=== PATIENT | female | born 1990 | race Caucasian/White ===

== ENCOUNTER 2016-10-07 12:44 | Emergency (ER) | payer MEDICAID ==
[2016-10-07] MEDS ORDERED: diphenhydrAMINE INJ 50 MG/ML VIAL IM STA (13:06)
[2016-10-07] MEDS ORDERED: FAMOTIDINE 20 MG/50 ML 50 ML IV ONE (13:06)
[2016-10-07] MEDS ORDERED: DEXAMETHASONE 10 MG/ML VIAL PO STA (13:06)
[2016-10-07] MEDS ORDERED: EPINEPHrine 1 MG/ML AMP IM STA (13:06)
[2016-10-07] MEDS ORDERED: FAMOTIDINE 20 MG/2 ML VIAL ONE (13:09)
[2016-10-07] MEDS ORDERED: diphenhydrAMINE INJ 50 MG/ML VIAL ONE (13:09)
[2016-10-07] MEDS ORDERED: EPINEPHrine 1 MG/ML AMP ONE (13:09)
[2016-10-07] MEDS ORDERED: DEXAMETHASONE 10 MG/ML VIAL ONE (13:09)
--- NOTE | 2016-10-07 13:41 | ED Physician Documentation ---
History of Present Illness - Stated complaint Stated Complaint: ALLERGIC REACTION - Chief complaint Chief Complaint: Allergic Rx - Additonal information Additional information: hx from pt 25 y/o f denies preg allergic rxn to hair product facial swelling, lip swelling, throat swelling, SOA no NVD no rash Review of Systems Constitutional: denies: Fever Throat: reports: Sore throat Respiratory: reports: Dyspnea GI: denies: Abdominal Pain, Nausea, Vomiting, Diarrhea : denies: Now EGA Skin: denies: Rash Endocrine: denies: Easy bruising / bleeding Immunocompromised: denies: Immunocompromised PD PAST MEDICAL HISTORY - Past Medical History Psych: Depression - Past Surgical History 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 - Present Medications Home Medications: Ambulatory Orders Medication Instructions Recorded Confirmed FLUoxetine [PROzac] 60 mg ORAL DAILY 06/09/15 10/07/16 Cetirizine [ZyrTEC] 10 mg PO DAILY #5 tablet 10/07/16 Epinephrine [Epipen 2-Ezra] 0.3 mg IJ ONCE PRN #1 unit 10/07/16 predniSONE [Deltasone] 60 mg PO DAILY 3 Days 10/07/16 - Allergies Allergies/Adverse Reactions: Allergies Allergy/AdvReac Type Severity Reaction Status Date / Time No Known Drug Allergies Allergy Verified 10/07/16 12:50 - Social History Does the pt smoke?: Yes Smoking Status: Current every day smoker Does the pt drink ETOH?: Yes ETOH Use: Beer Does the pt have substance abuse?: No - Immunizations Immunizations are current?: Yes - POLST Patient has POLST: No PD ED PE NORMAL - Vitals Vital signs reviewed: Yes - HEENT HEENT: PERRL, Moist mucous membranes, Other (face red swollen lips swollen, mild tongue swelling, able to see soft palate and top of uvula) - Cardiac Cardiac: RRR - Respiratory Respiratory: No respiratory distress, Clear bilaterally - Abdomen Abdomen: Non tender - Derm Derm: No: Normal color (facial erythema) Results - Vitals Vitals: Vital Signs - 24 hr 10/07/16 10/07/16 10/07/16 12:47 12:56 13:45 Temperature 37.1 C Heart Rate 71 81 83 Respiratory 16 17 18 Rate Blood Pressure 129/79 126/71 112/48 L O2 Saturation 97 97 98 10/07/16 10/07/16 13:55 15:05 Temperature Heart Rate 82 93 Respiratory 18 18 Rate Blood Pressure 126/53 L 129/68 O2 Saturation 99 95 Oxygen O2 Source Room air - EKG (time done) 1302 Rate: Rate (enter#) (67) Rhythm: NSR Intervals: Normal [place] (borderline short) Ischemia: Normal ST segments PD MEDICAL DECISION MAKING - ED course ED course: epi IM benadryl pepcid decadron IV will obs 4 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 - erythema and swelling gone no rebound will dc Departure - Departure Disposition: 01 Home, Self Care Clinical Impression: Anaphylaxis Qualifiers: Encounter type: initial encounter Qualified Code(s): T78.2XXA - Anaphylactic shock, unspecified, initial encounter Condition: Good Instructions: ED Anaphylaxis General Follow-Up: Tito Piedra MD [Primary Care Provider] - Prescriptions: predniSONE [Deltasone] 60 mg PO DAILY 3 Days Epinephrine [Epipen 2-Ezra] 0.3 mg IJ ONCE PRN #1 unit PRN Reason: Anaphylaxis Cetirizine [ZyrTEC] 10 mg PO DAILY #5 tablet Comments: Consider seeing an rehab aide to be tested to see what you were allergic to so yo do not inadvertently get exposed again
[2016-10-07 17:48] VITALS: BP 112/74
--- NOTE | 2016-10-12 09:34 | ED Physician Documentation ---
ED Addendum - Addendum Addendum: 10/12/16 09:33 Patient still with some general aches, mild sore throat and feeling of trouble breathing. She is here with partner who hurt his shoulder and talks to me about her symptoms. Lungs are clear and throat has minimal edema of the uvula. Normal voice. She did not take the steroids Rx prior visit due to concern of side effects. Will have her take them now.
== END 2016-10-07 17:49 | disposition home or self-care (01) ==
LOC: ED 12:44
DX: T88.6XXA Anaphylactic reaction due to adverse effect of correct drug or medicament properly administered, initial encounter (principal); T49.4X5A Adverse effect of keratolytics, keratoplastics, and other hair treatment drugs and preparations, initial encounter; F17.200 Nicotine dependence, unspecified, uncomplicated
CPT/HCPCS: 93005; 93010; 96372; 96374; 99283; 99284

== ENCOUNTER 2016-10-10 12:19 | Emergency (ER) | payer MEDICAID ==
[2016-10-10] MEDS ORDERED: SODIUM CHLORIDE 0.9% 1,000 ML IV ONE (12:43)
[2016-10-10] MEDS ORDERED: KETOROLAC 60 MG/2 ML VIAL IVP STA (12:43)
--- NOTE | 2016-10-10 12:48 | ED Physician Documentation ---
History of Present Illness - Stated complaint Stated Complaint: DIZZY - Chief complaint Chief Complaint: General - History obtained from History obtained from: Patient, Family () - Additonal information Additional information: She was seen here a few nights ago for an allergic reaction related to hair dye , that is all better. She is not taking steroid and was taking Zyrtec through yesterday but was making her feel hyper and was unable to sleep at all basically. Today she went to work on the way to work was having trouble concentrating and feeling generally dizzy at work. She is mild bitemporal headache now associated with nausea but no vomiting. She had a hot flash yesterday but no measured fevers. She had chest pain yesterday which is now gone. No pedal edema or calf pain. Review of Systems Ten Systems: 10 systems reviewed and negative Constitutional: denies: Fever, Chills Eyes: reports: Photophobia. 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 - Present Medications Home Medications: Ambulatory Orders Medication Instructions Recorded Confirmed FLUoxetine [PROzac] 60 mg ORAL DAILY 06/09/15 10/07/16 Cetirizine [ZyrTEC] 10 mg PO DAILY #5 tablet 10/07/16 Epinephrine [Epipen 2-Ezra] 0.3 mg IJ ONCE PRN #1 unit 10/07/16 predniSONE [Deltasone] 60 mg PO DAILY 3 Days 10/07/16 - Allergies Allergies/Adverse Reactions: Allergies Allergy/AdvReac Type Severity Reaction Status Date / Time No Known Drug Allergies Allergy Verified 10/07/16 12:50 - Social History Does the pt smoke?: Yes Smoking Status: Current every day smoker Does the pt drink ETOH?: Yes Does the pt have substance abuse?: No - Family History Family history: reports: Non contributory - Immunizations Immunizations are current?: Yes - POLST Patient has POLST: No PD ED PE NORMAL - Vitals Vital signs reviewed: Yes - General General: Alert and oriented X 3, No acute distress - HEENT HEENT: PERRL, EOMI - Neck Neck: Supple, no meningeal sign, No bony TTP - Cardiac Cardiac: RRR, No murmur - Respiratory Respiratory: No respiratory distress, Clear bilaterally - Abdomen Abdomen: Soft, Non tender - Back Back: No CVA TTP, No spinal TTP - Derm Derm: Normal color, Warm and dry - Extremities Extremities: No deformity, No tenderness to palpate, No edema, No calf tenderness / cord - Neuro Neuro: Alert and oriented X 3, 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0 Hct 41.3 MCV 88.4 MCH 30.0 MCHC 33.9 RDW 12.6 Plt Count 222 MPV 8.0 Neut # 6.4 Lymph # 2.7 [place] # 0.8 Eos # 0.2 Baso # 0.0 Absolute Nucleated RBC 0.01 Nucleated RBCs 0.1 Sodium Potassium Chloride Carbon Dioxide Anion Gap BUN Creatinine Estimated GFR (MDRD) Glucose Calcium Total Bilirubin AST ALT Alkaline Phosphatase Total Protein Albumin Globulin Albumin/Globulin Ratio Lipase Urine Color YELLOW Urine Clarity CLEAR Urine pH 6.0 Ur Specific [place] <=1.005 Urine Protein NEGATIVE Urine Glucose (UA) NEGATIVE Urine Ketones NEGATIVE Urine Occult Blood NEGATIVE Urine Nitrite NEGATIVE Urine Bilirubin NEGATIVE Urine Urobilinogen 0.2 (NORMAL) Ur Leukocyte Esterase TRACE H Ur Microscopic Review INDICATED Urine Culture Comments Not Reportable Urine HCG, Qual NEGATIVE Urine Opiates Screen NEGATIVE Ur Oxycodone Screen NEGATIVE Urine Methadone Screen NEGATIVE Ur Propoxyphene Screen NEGATIVE Ur Barbiturates Screen NEGATIVE Ur Tricyclics Screen NEGATIVE Ur Phencyclidine Scrn NEGATIVE Ur Amphetamine Screen NEGATIVE U Methamphetamines Scrn NEGATIVE U Benzodiazepines Scrn NEGATIVE Urine Cocaine Screen NEGATIVE U Cannabinoids Screen NEGATIVE Ethyl Alcohol 10/10/16 13:11 WBC RBC Hgb Hct MCV MCH MCHC RDW Plt Count MPV Neut # Lymph # [place] # Eos # Baso # Absolute Nucleated RBC Nucleated RBCs Sodium 140 Potassium 3.7 Chloride 106 Carbon Dioxide 25 Anion Gap 9.0 BUN 12 Creatinine 0.8 Estimated GFR (MDRD) 87 L Glucose 89 Calcium 9.3 Total Bilirubin 0.9 AST 15 ALT 19 Alkaline Phosphatase 57 Total Protein 6.7 Albumin 4.2 Globulin 2.5 Albumin/Globulin Ratio 1.7 Lipase 19 L Urine Color Urine Clarity Urine pH Ur Specific [place] Urine Protein Urine Glucose (UA) Urine Ketones Urine Occult Blood Urine Nitrite Urine Bilirubin Urine Urobilinogen Ur Leukocyte Esterase Ur Microscopic Review Urine Culture Comments Urine HCG, Qual Urine Opiates Screen Ur Oxycodone Screen Urine Methadone Screen Ur Propoxyphene Screen Ur Barbiturates Screen Ur Tricyclics Screen Ur Phencyclidine Scrn Ur Amphetamine Screen U Methamphetamines Scrn U Benzodiazepines Scrn Urine Cocaine Screen U Cannabinoids Screen Ethyl Alcohol < 5.0 PD MEDICAL DECISION MAKING - ED course ED course: She presents with complaints of lightheadedness and mild confusion today, likely related to several days of poor sleep and and recent medications for allergic reaction. She has a normal neuro exam. Unremarkable workup here. Departure - Departure Disposition: 01 Home, Self Care Clinical Impression: Dizziness Fatigue Qualifiers: Fatigue type: unspecified Qualified Code(s): R53.83 - Other fatigue Condition: Good Record reviewed to determine appropriate education?: Yes Instructions: ED Dizziness UKO Comments: Rest for the rest of the day, drink plenty of fluids. Return if worse or if new symptoms develop. Call your doctor to arrange a follow up appointment. Make the next available appointment.
[2016-10-10] MEDS ORDERED: KETOROLAC 30 MG/ML VIAL ONE (13:16)
[2016-10-10 13:26] LABS: BILIRUBIN,URINE NEGATIVE (NEGATIVE)
[2016-10-10 13:27] LABS: BASOPHILS % (AUTO) 0.4 %; EOSINOPHILS # (AUTO) 0.2 10^3/uL (0.0-0.7); EOSINOPHILS % (AUTO) 1.9 %; HCT - HEMATOCRIT 41.3 % (37.0-47.0); LYMPHOCYTES # (AUTO) 2.7 10^3/uL (1.5-3.5); LYMPHOCYTES % (AUTO) 26.4 %; MEAN CORPUSCULAR HGB CONC 33.9 g/dL (32.0-36.0); MEAN CORPUSCULAR VOLUME 88.4 fL (81.0-99.0); MONOCYTES # (AUTO) 0.8 10^3/uL (0.0-1.0); MONOCYTES % (AUTO) 8.1 %; NEUTROPHILS # (AUTO) 6.4 10^3/uL (1.5-6.6); NEUTROPHILS % (AUTO) 63.2 %; NUCLEATED RED BLOOD CELLS AUTO 0.1 /100WBC; RED BLOOD COUNT 4.67 10^6/uL (4.20-5.40); RED CELL DISTRIBUTION WIDTH 12.6 % (12.0-15.0); UNCORRECTED WHITE BLOOD COUNT 10.2 x10^3/uL; WHITE BLOOD COUNT 10.2 x10^3/uL (4.8-10.8)
[2016-10-10 13:29] LABS: HCG UR QUAL NEGATIVE; UA w/ MICROSCOPIC CHARGE YES
[2016-10-10 13:36] LABS: ALBUMIN/GLOBULIN RATIO 1.7 (1.0-2.2); BILIRUBIN,TOTAL 0.9 mg/dL (0.2-1.0); BUN - BLOOD UREA NITROGEN 12 mg/dL (6-20); CALCIUM 9.3 mg/dL (8.5-10.3); CARBON DIOXIDE - CO2 25 mmol/L (21-32); CHLORIDE 106 mmol/L (101-111); CREATININE 0.8 mg/dL (0.4-1.0); GFR - MDRD 87 (>89); GLUCOSE 89 mg/dL (70-100); LIPASE 19 U/L (22-51); POTASSIUM 3.7 mmol/L (3.5-5.0); SODIUM 140 mmol/L (135-145); TOTAL PROTEIN 6.7 g/dL (6.7-8.2)
[2016-10-10 14:05] VITALS: BP 101/54
[2016-10-10 14:19] LABS: UR CULTURE IF IND NOT INDICATED
== END 2016-10-10 14:04 | disposition home or self-care (01) ==
LOC: ED 12:19
DX: R42 Dizziness and giddiness (principal); R53.83 Other fatigue; F17.200 Nicotine dependence, unspecified, uncomplicated
CPT/HCPCS: 36415; 80053; 80306; 80320; 81001; 81003; 81025; 83690; 85025; 87086; 93005; 93010; 96361; 96374; 99283; 99284

== ENCOUNTER 2016-10-27 08:38 | Outpatient (CLI) | payer MEDICAID ==
[2016-10-27 13:50] LABS: BASOPHILS % (AUTO) 0.5 %; EOSINOPHILS # (AUTO) 0.2 10^3/uL (0.0-0.7); EOSINOPHILS % (AUTO) 3.6 %; HCT - HEMATOCRIT 40.1 % (37.0-47.0); HGB - HEMOGLOBIN 13.8 g/dL (12.0-16.0); LYMPHOCYTES # (AUTO) 1.9 10^3/uL (1.5-3.5); LYMPHOCYTES % (AUTO) 28.5 %; MEAN CORPUSCULAR HEMOGLOBIN 30.4 pg (27.0-31.0); MEAN CORPUSCULAR HGB CONC 34.4 g/dL (32.0-36.0); MEAN CORPUSCULAR VOLUME 88.4 fL (81.0-99.0); MEAN PLATELET VOLUME 8.2 fL (7.9-10.8); MONOCYTES # (AUTO) 0.5 10^3/uL (0.0-1.0); NEUTROPHILS % (AUTO) 60.4 %; RED BLOOD COUNT 4.53 10^6/uL (4.20-5.40); RED CELL DISTRIBUTION WIDTH 12.7 % (12.0-15.0); UNCORRECTED WHITE BLOOD COUNT 6.6 x10^3/uL; WHITE BLOOD COUNT 6.6 x10^3/uL (4.8-10.8)
[2016-10-27 14:06] LABS: ALBUMIN/GLOBULIN RATIO 1.3 (1.0-2.2); BILIRUBIN,TOTAL 1.4 mg/dL (0.2-1.0); BUN - BLOOD UREA NITROGEN 11 mg/dL (6-20); CALCIUM 9.1 mg/dL (8.5-10.3); CARBON DIOXIDE - CO2 24 mmol/L (21-32); CHLORIDE 109 mmol/L (101-111); CHOL/HDL RATIO 4.4 (<4.4); CHOLESTEROL 173 mg/dL; CREATININE 0.8 mg/dL (0.4-1.0); GFR - MDRD 87 (>89); GLUCOSE 94 mg/dL (70-100); HDL CHOLESTEROL 39 mg/dL; LDL/HDL RATIO 2.8 (<4.4); SODIUM 138 mmol/L (135-145); TOTAL PROTEIN 6.9 g/dL (6.7-8.2); TRIGLYCERIDES 126 mg/dL; VLDL CHOLESTEROL 25 mg/dL
== END 2016-10-27 08:39 | disposition home or self-care (01) ==
LOC: LAB.N 08:38
PROVIDERS: ATTEND Family Medicine
DX: E66.9 Obesity, unspecified (principal); F41.8 Other specified anxiety disorders
CPT/HCPCS: 36415; 80053; 80061; 84443; 85025

== ENCOUNTER 2016-11-26 08:01 | Outpatient (CLI) | payer MEDICAID ==
--- NOTE | 2016-11-26 17:44 | Ultrasound Report ---
EXAM: THYROID ULTRASOUND EXAM DATE: 11/26/2016 08:35 AM. CLINICAL HISTORY: GOITER, NONTOXIC. Palpable neck mass COMPARISON: None. TECHNIQUE: Real time sonographic imaging of the thyroid was performed by the seat cover installer. Multiple re presentative static images were saved for review. FINDINGS: THYROID GLAND: Right Lobe: 6.6 x 2.9 x 4.8 cm, volume 47 cc. The right lobe of the thyroid gland is nearly completel y replaced by a heterogeneous, primarily isoechoic, solid nodule measuring 5.6 x 2.8 x 4.4 cm. There is internal vascularity; no calcification. Left Lobe: 3.7 x 1.2 x 1.3 cm, volume 3 cc. Normal background echotexture. Left Lobe Nodules: Well-circumscribed hypoechoic nodule in the inferior pole with a maximal diameter 6 mm. There is internal vascularity but no calcification. Isthmus: 0.4 cm AP. Isthmic Nodules: None. LYMPH NODES: No adenopathy demonstrated in the central or lateral compartment. OTHER: None. IMPRESSION: Large right thyroid nodule. Tissue sampling is recommended. Management recommendations are based on 2015 [place] [employer] Management Guidelines for A dult Patients with Thyroid Nodules and Differentiated Thyroid Cancer. [facility] Referring Provider Line: [phone] SITE ID: [id number]
== END 2016-11-26 08:02 | disposition home or self-care (01) ==
LOC: DI 08:01
PROVIDERS: ATTEND Family Medicine
DX: E04.1 Nontoxic single thyroid nodule (principal)
CPT/HCPCS: 76536

== ENCOUNTER 2017-01-03 09:09 | Outpatient (CLI) | payer MEDICAID | END 2017-01-03 09:10 | disposition home or self-care (01) | LOC: LAB 09:09 | PROVIDERS: ATTEND Surgery | DX: E04.1 Nontoxic single thyroid nodule (principal) | CPT/HCPCS: 36415; 86376 ==

== ENCOUNTER 2017-01-15 09:26 | Outpatient (CLI) | payer MEDICAID ==
--- NOTE | 2017-01-15 13:06 | Ultrasound Report ---
ULTRASOUND FINE-NEEDLE ASPIRATION OF THYROID: 01/15/2017 HISTORY: Right thyroid nodule. COMPARISON: Neck ultrasound 11/26/2016. TECHNIQUE: Initial scan demonstrates a solid vascular 5.6 x 2.8 x 4.4 cm nodule replacing the bulk of the right thyroid gland. FINDINGS: After discussion of potential risks and complications informed consent is obtained from the patient. Using sterile technique, local anesthetic is introduced into the midline neck skin. Then using ultrasound guidance, the large right thyroid nodule is targeted and four separate aspirations with a 22-gauge needle are performed. Tissue samples are submitted to the lab for review. Patient tolerated the procedure well. IMPRESSION: SUCCESSFUL ULTRASOUND-GUIDED THYROID FNA. JOB #: [id number] EXT JOB #: [id number] TIA
[2017-01-15] MEDS ORDERED: BUFFERED LIDOCAINE 10 ML SYRINGE IU ONE (15:08)
[2017-01-16 14:34] VITALS: BP 105/49
== END 2017-01-15 09:27 | disposition home or self-care (01) ==
LOC: DI 09:26
PROVIDERS: ATTEND Surgery
DX: E04.9 Nontoxic goiter, unspecified (principal); E07.89 Other specified disorders of thyroid
CPT/HCPCS: 10022; 76942

== ENCOUNTER 2017-02-12 09:52 | Inpatient (IN) | payer MEDICAID ==
[2017-02-12] MEDS ORDERED: LACTATED RINGERS 1,000 ML IV ONE ×3 (10:08→13:52)
[2017-02-12 10:29] LABS: HCG UR QUAL NEGATIVE
[2017-02-12] MEDS ORDERED: ONDANSETRON 4 MG/2 ML VIAL IVP ONE (13:00)
[2017-02-12] MEDS ORDERED: MIDAZOLAM 2 MG/2 ML VIAL IVP ONE (13:00)
[2017-02-12] MEDS ORDERED: SUCCINYLCHOLINE 200 MG/10 ML VIAL IVP ONE (13:00)
[2017-02-12] MEDS ORDERED: PROPOFOL 200 MG/20 ML VIAL IVP ONE (13:00)
[2017-02-12] MEDS ORDERED: DEXAMETHASONE 4 MG/ML VIAL IVP ONE (13:00)
[2017-02-12] MEDS ORDERED: ROCURONIUM 50 MG/5 ML VIAL IVP ONE (13:00)
[2017-02-12] MEDS ORDERED: LIDOCAINE-MPF 2% 5 ML VIAL IM ONE (13:00)
[2017-02-12] MEDS ORDERED: fentaNYL 100 MCG/2 ML VIAL IVP ONE (13:00)
[2017-02-12] MEDS ORDERED: BUPIVACAINE 0.5% PF 30 ML VIAL INFIL ONE (13:31)
[2017-02-12] MEDS ORDERED: BUPIVACAINE 0.5% PF 30 ML VIAL SUBQ ONE (13:31)
[2017-02-12] MEDS ORDERED: SODIUM CHLORIDE FLUSH 0.9% 10 ML SYRINGE IVP PRN (16:18)
[2017-02-12] MEDS ORDERED: HYDROmorphone 1 MG/ML AMP ONE (16:35)
[2017-02-12] MEDS ORDERED: ONDANSETRON 4 MG/2 ML VIAL IVP PRN (17:17)
[2017-02-12] MEDS: LACTATED RINGERS 1,000 ML IV SCH (17:25)
[2017-02-12] MEDS: ACETAMINOPHEN 1,000 MG/100 ML 100 ML IV PRN (17:37)
[2017-02-12] MEDS: MORPHINE 2 MG/ML SYRINGE IVP PRN ×2 (18:38→22:58)
[2017-02-12] MEDS: PHENOL THROAT SPRAY 177 ML MM PRN ×2 (18:44→22:53)
[2017-02-12] MEDS: SODIUM CHLORIDE FLUSH 0.9% 10 ML SYRINGE IVP SCH (20:05)
[2017-02-12] MEDS: oxyCOD/ACETAMIN 5 MG/325 MG TABLET PO PRN (22:52)
[2017-02-13] MEDS: ACETAMINOPHEN 1,000 MG/100 ML 100 ML IV PRN (00:30)
[2017-02-13] MEDS: MORPHINE 2 MG/ML SYRINGE IVP PRN ×4 (00:51→07:27)
[2017-02-13] MEDS: LACTATED RINGERS 1,000 ML IV SCH ×3 (02:49→20:55)
--- NOTE | 2017-02-13 03:25 | OPERATIVE REPORT ---
DATE OF SURGERY: 02/12/2017 00:00:00 SURGEON: Abby Chase MD. BRIAR CUTTER: Abraham Parks MD. ANESTHESIA: General. PREOPERATIVE DIAGNOSIS: Right thyroid goiter with follicular lesion of indeterminant significance. POSTOPERATIVE DIAGNOSIS: Right thyroid goiter with follicular lesion of indeterminant significance. PROCEDURE PERFORMED: Right thyroid lobectomy. FINDINGS: After obtaining informed consent from the patient, she was brought into the operating room and positioned on the operating table in the supine position with a shoulder roll placed and her arms tucked. She was intubated by Anesthesia. She was prepped and draped in the usual sterile fashion and a time- out was taken according to protocol. Appropriate anatomic landmarks were established, including the thyroid notch and the sternal notch. An incision was selected approximately 2 cm above the sternal notch along the lines of [place], extending to the right slightly and approximately ending about 4 cm in length. This was deepened down to the subcutaneous tissue and through the platysmas. Platysmal flaps were then created superiorly towards the thyroid notch and inferiorly towards the sternal notch. During creation of these flaps, there was a small amount of bleeding in the superior aspect, which was controlled with electrocautery. The strap muscles were then encountered and were divided in the midline. The strap muscles were retracted right and laterally. The surgeon's finger was then used to bluntly dissect the strap muscles off the thyroid capsule. The right thyroid lobe was noted to be quite enlarged. The superior pole, specifically was enlarged and extending superiorly and posteriorly. The inferior lobe allowed easier access and we began our dissection here. On dissecting medially and inferiorly, an anterior jugular vein was encountered and bleeding occurred during ligation. This was controlled with Hemoclips and the LigaSure device The inferior pole was then elevated medially and superiorly and was dissected from the underlying areolar tissue. Branches of the inferior pole vessels were encountered and were ligated using the LigaSure device. Dissection was carried out in very close approximation to the enlarged thyroid gland. I then continued to work my way superiorly and medially. The middle thyroid vein was subsequently encountered on the thyroid capsule and was ligated using the LigaSure. The superior pole proved to be quite difficult to dissect out of the wound. Sutures were placed on the thyroid capsule to aid in retraction using a 3-0 Vicryl placed on the superior and inferior poles. By retracting the superior pole inferiorly, the thyroid was carefully dissected away from the underlying areolar tissue. The superior pole vessels were identified in this location and were ligated using the LigaSure. I continued to dissect the superior lobe off of the underlying structures, working my way medially to laterally. The superior parathyroid was located posteriorly and was protected from dissection. Eventually the thyroid was able to be completely exteriorized from the wound. With medial retraction on the thyroid, the posterior aspect of the lobe was dissected down to the level of the trachea. At this point, only the isthmus was remaining and this was divided on top of the trachea using the LigaSure device. The specimen was inspected and no residual parathyroid tissue was noted on the thyroid. It was then passed off. The wound bed was then inspected for signs of bleeding and a small amount of bleeding near the tracheoesophageal groove was noted. This was controlled using Hemoclips. Additionally, there was a small amount of bleeding from the strap muscles, which was controlled with electrocautery. The wound was irrigated profusely and hemostasis was noted to be achieved. A Brenton drain was inserted into the wound due to the significant dissection that was performed and the high vascularity of the surrounding tissue. The drain was sutured in place with 3-0 nylon.The strap muscles were then reapproximated with a running 3 -0 Vicryl. The platysmas was then reapproximated using running 3-0 Vicryl. The skin was then closed with vertical mattress 3-0 nylon. Steri-Strips were then applied. A sterile dressing was applied. The patient was then extubated. The glidescope was utilized to inspect her vocal cords and the were noted to be functioning adequately with good symmetry. The patient was brought to the recovery room in stable condition. ESTIMATED BLOOD LOSS: 150 mL. COMPLICATIONS: None. SPECIMEN: Right thyroid lobe. JOB #: [id number] EXT JOB #:[id number]
[2017-02-13] MEDS: SODIUM CHLORIDE FLUSH 0.9% 10 ML SYRINGE IVP SCH ×3 (05:57→16:09)
[2017-02-13] MEDS: oxyCOD/ACETAMIN 5 MG/325 MG TABLET PO PRN ×4 (07:27→20:57)
--- NOTE | 2017-02-13 13:34 | Discharge Plan ---
Discharge Plan Disposition: 01 Home, Self Care Condition: Good Diet: Soft Activity Restrictions: Activity as Tolerated Shower Restrictions: Yes (no tub bathing 1 week) Driving Restrictions: Yes (not while on narcotics, not until neck mobility normal) Weight Bearing: Full Weight Instruction Topics: Thyroid Surg After Additional Instructions or Follow Up instructions: No tub bathing, swimming, sauna for 1 week post op. Leave steri strips in place until your post op visit. Call your surgeon if you develop fever, chills, bleeding from incision, drainage of yellow or foul smelling fluid from incision , redness around incision, or swelling of incision. Shower daily. Remove dressing to shower and replace with dry dressing until there is no longer drainage present. Always wash your hands prior to touching incision. No Smoking: If you smoke, Please STOP! Call for help. Follow-up with: ANNALEE CARBAJAL MD [Provider Admit Priv/Credential] - 02/28/17 9:30 am
[2017-02-13] MEDS: diphenhydrAMINE ELIXIR 25 MG/10 ML UDC PO PRN (16:22)
--- NOTE | 2017-02-13 20:13 | PROVIDER PROGRESS NOTE ---
Subjective - General Admit Date: 02/12/17 Procedure Date: 02/12/17 Post Op Days: 1 Procedure Performed: right thyroid lobectomy - Review of Systems Wound/Incisions: positive: Healing well, No drainage Drain Type: BRANDY - Drain Output Description: serosanguinous Approximate mls Output: 40cc General: positive: Weakness, Other (dizziness) Pulmonary: positive: No symptoms Cardiovascular: positive: Orthopnea Gastrointestinal: positive: Nausea Genitourinary: positive: No symptoms Psychiatric: positive: Anxiety - Other Other Information/Narrative: erythema surrounding incision concerning for allergic reaction to adhesive. Skin is warm to touch. Patient feels dizzy and is reluctant to ambulate without assistance. She also complains of incisional pain. Complained of dyspnea while lying flat, improved with elevation of head. No notable neck swelling. Slightly hypotensive. Objective - Patient Data Reviewed Vital Signs: Yes Vital Signs: Vital Signs x48h Temp Pulse Resp BP Pulse Ox 02/13/17 19:31 37.0 C 75 16 110/50 L 95 02/13/17 15:51 36.8 C 66 18 108/57 L 98 02/13/17 12:27 36.7 C 70 16 99/46 L 97 Weight: Weight 02/11/17 02/12/17 02/13/17 23:59 23:59 23:59 Weight (kg) 102.7 kg Intake & Output: Intake and Output Totals x24h 02/11/17 02/12/17 02/13/17 23:59 23:59 23:59 Intake Total 900 2868.333 Output Total 45 20 Balance 855 2848.333 - Current Medications Current Medications: Current Medications Generic Name Dose Route Start Last Admin Trade Name Freq PRN Reason Stop Dose Admin Diphenhydramine HCl 12.5 mg 02/13/17 15:58 02/13/17 16:22 Benadryl Elixir PO 12.5 mg Q4HR PRN Administration Allergy Symptoms Lactated Ringer's 1,000 mls @ 100 mls/hr 02/12/17 17:00 02/13/17 12:00 Lr IV 100 mls/hr .Q10H EVELINA Administration Acetaminophen 100 mls @ 400 mls/hr 02/12/17 16:18 02/13/17 00:45 Ofirmev IV 02/14/17 16:17 Infused Q6HR PRN Infusion PAIN Ondansetron HCl 4 mg 02/12/17 17:17 02/12/17 17:25 Zofran Inj IVP 4 mg Q6HR PRN Administration Nausea / Vomiting Oxycodone/Acetaminophen 1 tab 02/12/17 16:18 02/13/17 15:46 Percocet 5 Mg/325 Mg PO 1 tab Q4HR PRN Administration PAIN Phenol/Menthol 2 sprays 02/12/17 18:36 02/12/17 22:53 Chloraseptic MM 2 sprays Q2HR PRN Administration Throat Pain Sodium Chloride 10 ml 02/12/17 22:00 02/13/17 16:09 Normal Saline Flush 0.9% IVP Not Given Q8HR EVELINA - Physical Exam Wound/Incisions: positive: No drainage, Erythema General Appearance: positive: Mild distress, Anxious Neck: positive: Other (incision CDI. erythema has developed from morning exam to afternoon exam. Likely representing adhesive allergy. No swelling. BRANDY drain removed this am. No drainage from wound) Respiratory: positive: Other (complains of dyspnea if lying flat) Cardiovascular: positive: Regular rate & rhythm Extremities: positive: No pedal edema Neurologic/Psychiatric: positive: Oriented x3 Impression/Plan - Problem List Problem List: s/p right thyroid lobectomy - Benedryl prescribed for presumed allergic reaction to adhesive. - Dyspnea while lying flat - patient encouraged to keep HOB elevated - mild hypotension since OR. Discontinued IV narcotics. Slight improvement. Patient remains dizzy with inability to safely ambulate independently. Possibly related to anesthetic and narcotics. Con't IV fluids. Tolerating regular diet. - Unable to discharge to home secondary to above mentioned symptoms. Patient will be stable for discharge once she is able to ambulate without assistance, tolerate a soft diet, pain controlled with oral pain meds and there is no concern for airway compromise.
[2017-02-14] MEDS: diphenhydrAMINE ELIXIR 25 MG/10 ML UDC PO PRN ×2 (00:51→08:22)
[2017-02-14] MEDS: oxyCOD/ACETAMIN 5 MG/325 MG TABLET PO PRN ×3 (00:52→09:22)
[2017-02-14] MEDS: LACTATED RINGERS 1,000 ML IV SCH (05:21)
[2017-02-14] MEDS: SODIUM CHLORIDE FLUSH 0.9% 10 ML SYRINGE IVP SCH ×2 (05:56→07:27)
[2017-02-14 08:22] VITALS: BP 93/48
[2017-02-14] MEDS: ACETAMINOPHEN 1,000 MG/100 ML 100 ML IV PRN (08:23)
--- NOTE | 2017-02-14 08:48 | DISCHARGE SUMMARY ---
DATE OF ADMISSION: 02/12/2017 DATE OF DISCHARGE: 02/14/2017 REASON FOR ADMISSION: Elective right thyroid lobectomy for follicular lesion of undetermined significance. HOSPITAL COURSE: This is a 26-year-old female who underwent an elective right thyroid lobectomy for an enlarged right thyroid nodule with pathology concerning for a follicular lesion of undetermined significance. She was transferred to the floor postoperatively with a Alla drain in place. She did well on hospital day 0 and tolerated a soft diet. On hospital day #1, her alla drain and sutures were removed. She was feeling very dizzy and was noted to be slightly hypotensive. She also developed erythema around her incision, which was concerning for either a tape allergy or reaction to Percocet. She was started on Benadryl for this, but was continuing to have a fair amount of dizziness and did not felt safe ambulating independently. She was tolerating a diet, but complained of some dyspnea when she was lying flat. For this reason, she was kept in the hospital 1 additional day. On postoperative day 2, she was feeling much better. She stated that her dizziness and feeling of dyspnea had resolved. Her IV morphine had been stopped and her rash had improved. She was stable for discharge on hospital day #2. Her exam on discharge demonstrated a well-healing neck incision without any surrounding erythema or drainage, without any swelling of the neck. She was instructed upon discharge to shower daily, to wash her hands prior to touching her incision, and was instructed to continue to change her dressing daily until it was no longer draining anything at which point she no longer needed to apply a dressing. She was also instructed to leave her Steri-Strips in place. She was told not to take any tub baths, swim in a swimming pool or get in the sauna for 1 week postoperatively. She was provided with a postoperative appointment with myself on 02/28/2017. She was instructed to call my office should she develop any fevers, chills, redness around her incision, or foul-smelling drainage from her incision, or bleeding from her incision, or swelling in the neck. The patient was provided a prescription for Percocet upon discharge. JOB #: [id number] EXT JOB #:[id number] [facility]
== END 2017-02-14 10:30 | disposition home or self-care (01) | DRG 627 ==
LOC: SDS 09:52 → MS2 16:18
PROVIDERS: ADMIT Surgery; ATTEND Surgery
PROC: 0GTH0ZZ Resection of Right Thyroid Gland Lobe, Open Approach (ICD-10-PCS; principal; 2017-02-12 11:15)
DX: E04.1 Nontoxic single thyroid nodule (principal); I95.9 Hypotension, unspecified; L23.1 Allergic contact dermatitis due to adhesives; L27.1 Localized skin eruption due to drugs and medicaments taken internally; R06.01 Orthopnea; R42 Dizziness and giddiness; T40.2X5A Adverse effect of other opioids, initial encounter; Y92.230 Patient room in hospital as the place of occurrence of the external cause
CPT/HCPCS: 81025; J1170

== ENCOUNTER 2017-05-16 08:00 | Outpatient (CLI) | payer MEDICAID ==
[2017-05-16 19:28] LABS: BASOPHILS % (AUTO) 0.6 %; EOSINOPHILS # (AUTO) 0.2 10^3/uL (0.0-0.7); EOSINOPHILS % (AUTO) 3.4 %; HGB - HEMOGLOBIN 13.8 g/dL (12.0-16.0); LYMPHOCYTES # (AUTO) 1.8 10^3/uL (1.5-3.5); LYMPHOCYTES % (AUTO) 25.2 %; MEAN CORPUSCULAR HGB CONC 33.4 g/dL (32.0-36.0); MEAN PLATELET VOLUME 8.5 fL (7.9-10.8); MONOCYTES # (AUTO) 0.4 10^3/uL (0.0-1.0); MONOCYTES % (AUTO) 5.7 %; NEUTROPHILS # (AUTO) 4.7 10^3/uL (1.5-6.6); NEUTROPHILS % (AUTO) 65.1 %; PLT - PLATELET COUNT 201 10^3/uL (130-450); RED BLOOD COUNT 4.59 10^6/uL (4.20-5.40); RED CELL DISTRIBUTION WIDTH 12.4 % (12.0-15.0); WHITE BLOOD COUNT 7.2 x10^3/uL (4.8-10.8)
[2017-05-16 19:36] LABS: ALBUMIN 4.2 g/dL (3.2-5.5); ALBUMIN/GLOBULIN RATIO 1.4 (1.0-2.2); BILIRUBIN,TOTAL 1.1 mg/dL (0.2-1.0); CALCIUM 8.8 mg/dL (8.5-10.3); CREATININE 0.8 mg/dL (0.4-1.0); TOTAL PROTEIN 7.2 g/dL (6.7-8.2)
[2017-05-16 19:37] LABS: THYROID STIMULATING HORMONE 3.46 uIU/mL (0.34-5.60)
[2017-05-16 19:39] LABS: FREE T4 (FREE THYROXINE) 0.71 ng/dL (0.58-1.64)
== END 2017-05-16 08:01 | disposition home or self-care (01) ==
LOC: LAB.N 08:00
PROVIDERS: ATTEND Family Medicine
DX: R10.84 Generalized abdominal pain (principal); E04.1 Nontoxic single thyroid nodule
CPT/HCPCS: 36415; 80053; 83690; 84439; 84443; 85025; 85651

== ENCOUNTER 2019-10-23 10:04 | Outpatient (CLI) | payer OTHER | END 2019-10-23 10:05 | disposition home or self-care (01) | LOC: LAB 10:04 | PROVIDERS: ATTEND Pediatrics | DX: R05 Cough (principal); Z20.828 Contact with and (suspected) exposure to other viral communicable diseases | CPT/HCPCS: 81599 ==

== ENCOUNTER 2020-06-21 08:00 | Outpatient (CLI) | payer OTHER ==
[2020-06-21 19:18] LABS: BILIRUBIN,URINE NEGATIVE (NEGATIVE); GLUCOSE, URINE (UA) NEGATIVE (NEGATIVE); KETONES,URINE (UA) NEGATIVE (NEGATIVE); LEUKOCYTE ESTERASE, URINE NEGATIVE (NEGATIVE); NITRITE,URINE NEGATIVE (NEGATIVE); OCCULT BLOOD,URINE NEGATIVE (NEGATIVE); PROTEIN,URINE NEGATIVE (NEGATIVE); UROBILINOGEN,URINE 4 E.U./dL (NORMAL)
[2020-06-21 19:24] LABS: CLARITY,URINE CLEAR (CLEAR)
[2020-06-21 19:35] LABS: BACTERIA,URINE Rare /HPF (None Seen); RBC,URINE 0-5 /HPF (0-5); SQUAMOUS EPITHELIAL CELL,UR FEW Squamous (<= Few)
== END 2020-06-21 23:59 | disposition home or self-care (01) ==
LOC: LAB.R 08:00
PROVIDERS: ATTEND Obstetrics & Gynecology
DX: Z34.90 Encounter for supervision of normal pregnancy, unspecified, unspecified trimester (principal)
CPT/HCPCS: 81001; 87086

== ENCOUNTER 2020-07-05 14:48 | Outpatient (CLI) | payer OTHER ==
--- NOTE | 2020-07-05 15:58 | Ultrasound Report ---
PROCEDURE: OB First Trimester INDICATIONS: POS TEST OUTSIDE/PRIOR DATING DATA: Last menstrual period (LMP): 05/06/2020. LMP-based estimated date of delivery (BERNIE): 02/10/2021. First dating scan (date and location): 07/05/2020, this examination. Estimated date of delivery (BERNIE) from first dating scan: 02/12/2021. TECHNIQUE: Real-time scanning was performed of the fetus and maternal pelvic organs, with image documentation. COMPARISON: None. FINDINGS: Single living intrauterine fetus is present with a crown-rump length measuring 1.8 cm, 8 w eeks 2 days. heart rate measures 171 bpm. Measurement variability in dating: +/- 4 weeks by LMP, +/- 7 days by mean sac diameter (use before 6 weeks gestation if crown-rump length not able to be measured), +/- 5 days by crown-rump length (6-12 weeks gestation). Maternal organs: Ovaries unremarkable except for a right corpus luteum measuring 2.0 x 1.8 x 1.9 cm. IMPRESSION: Single living intrauterine fetus with a gestational age measuring 8 weeks 2 days by today's ultrasoun d measurements. Reviewed by: Yg Snyder MD on 07/05/2020 3:57 PM PST Approved by: Yg Snyder MD on 07/05/2020 3:57 PM PST Station ID: [id number]
== END 2020-07-05 14:49 | disposition home or self-care (01) ==
LOC: DI 14:48
PROVIDERS: ATTEND Obstetrics & Gynecology
DX: Z34.91 Encounter for supervision of normal pregnancy, unspecified, first trimester (principal); Z3A.08 8 weeks gestation of pregnancy